=== PATIENT | male | born 1990 | race Hispanic/Latino ===

== ENCOUNTER 2017-01-19 15:46 | Emergency (ER) | payer OTHER ==
[~2017-01-19] VITALS: Ht 188 cm; Wt 86.4 kg
[2017-01-19 15:50] VITALS: BP 138/89; PULSE 74; RESP 16; O2SAT 100
--- NOTE | 2017-01-19 16:33 | ED.REPORT ---
HPI-Head Prob / Injury Date of Service January 19, 2017 ED Provider: Zain Bennett MD History of Present Illness: Turns out trauma was to neck. Patient is a 26 year old male who presents to the ED due to a blunt head trauma at 1245. Associated symptoms include headache, neck, upper back pain and dizziness after the incident that has since resolved. He denies losing consciousness, numbness or tingling, confusion, memory loss, nausea or vomiting. The patient reports that he was at work when a eleni broke and a 250 pound metal plate fell and hit him on the back of the head. He states was wearing a helmet during that time. Nursing Notes Stated Complaint: HEAD/NECK INJURY Chief Complaint: Multiple Trauma/Fall Nursing Notes Reviewed: Yes ([employer], [employer] not reconciled) Allergies: Coded Allergies: No Known Allergies (Unverified , 01/19/17) Scheduled PRN Hydrocodone-Acetaminophen 5-325 mg (Hydrocodone-Acetaminophen 5-325 mg) 1 Each Tablet 1-2 TABLET PO BID PRN PRN For Pain In [place] please General Time Seen by Provider: 16:39 Chief Complaint Blunt head trauma Hx Obtained From: Patient, Merchandising Specialist Arrived By: Walk-in Onset Occurred: 1 - 4 hours ago Symptom Duration: Since onset Caused by: Blunt trauma Location: : Neck: Occipital region L: Occipital region R Severity: Current: Moderate Associated with: Reports: Dizziness, Headache, Denies: Loss of consciousness, Nausea, Vomiting Recent Healthcare: No recent doctor visit, No recent hospitalization Similar Sx Previous: No Past Medical History Past Medical History none reported Past Surgical History none reported Smoking History Light Tobacco Smoker Social History Alcohol Use: "Social" Other Social History: Good social support, Local resident Ambulatory Status Independent Review of Systems GI: Denies: Nausea, Vomiting Musculoskeletal: Reports: Back pain, Neck pain Neurologic: Reports: Headache, Denies: Change LOC, Confusion, Numbness Complete sys rev & neg: except as marked. Respiratory: Denies: Non-productive cough, Shortness of breath Physical Exam Initial Vital Signs Vital Signs (First) Date Time Temp Pulse Resp B/P Pulse Ox O2 Delivery O2 Flow Rate FiO2 01/19/17 15:50 36.9 74 16 138/89 100 Room Air Initial VS: Reviewed, Vital signs normal General/Constitutional: Awake, Alert Head / Eyes: Atraumatic, Normocephalic, PERRL, EOMI no visible trauma to head or skull ENT: Atraumatic, Airway patent, Mucous membranes moist Neck: Atraumatic NECK: midline neck soreness Neurologic: Oriented X3, Speech NL, No motor deficits, No sensory deficits, Memory NL Respiratory / Chest: Atraumatic, No respiratory distress Skin: Atraumatic, Color NL, No rash, Warm, Dry Psychiatric: Affect NL, Mood NL Interpretation & Diagnostics CT C-Spine Interpretation IMPRESSION: No fracture Straightening of the normal cervical lordosis Dictated by: Ángel Fuller M.D. on 01/19/2017 at 17:31 Approved by: Ángel Fuller M.D. on 01/19/2017 at 17:33 Interpretation / Wet Read by: Interpret - Radiologist Re-Eval/Medical Decision Med Decision/Clinical Course This is a 26-year-old male presents with an injury at work. 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 He denies any neurologic symptoms and he has no additional complaints. On exam is no visible external signs of visible trauma. But he does complain of cervical neck pain is mild cervical tenderness. His neurologic exam is normal and is generally well-appearing. He was placed in a c-collar on arrival to the department. I am not funny indication that a CT brain is indicated, but is cervical CT was obtained given the neck pain. This was negative. The collar is removed received ibuprofen. A work note was written. L&I paperwork was completed. He is being discharged and ibuprofen as well as a prescription for a few when necessary hydrocodone. He is discharged in good condition. Source of Hx: Old records Re-Evaluation/Progress : Time of Eval: 18:08 Re-Evaluation/Progress Note: Discussed results and plan for discharge. Discussed discharge instructions with use of an cable television program director. The patient understands and agrees to the plan for discharge. All questions were addressed. Differential Diagnosis: Negative: Abrasion, Basilar skull fracture, Blunt head trauma, Epidural hematoma, Epistaxis, Facial bone fracture, Gun shot wound head , Intracranial hemorrhage, Penetrating head injury, Post-concussive syndrome, Skull fracture, Subdural hematoma Counseled Regarding: Diagnosis, Lab results, Need for follow-up, When/why to return to ED Discharge & Departure Primary Impression: Cervical strain, acute Encounter type: initial encounter Qualified Code: S16.1XXA - Strain of muscle, fascia and tendon at neck level, initial encounter Disposition: Home All VS Reviewed: Yes Condition: Stable Additional Instructions: 1. You had a CT scan of your neck today that was normal. 2. Expect to be increasingly sore over the next several days before starting to get better. 3. Activities as tolerated. 4. Take ibuprofen 800 mg 3 times a day as needed for pain or soreness. 5. If absolutely needed take hydrocodone/APAP 5/325 1-2 tabs up to twice a day for more severe pain. However, this medication contains narcotic and causes some dizziness and drowsiness. No driving for at least 4-6 hours after taking. Use only if needed for severe pain. 1. Le hicieron carlos tomagrafia computerizada de banuelos sangita hoy que salio' normal 2. Puede esperar que se le aumente el dolor por las proximas pocas neely anted de que se mejora. 3. Actividades primo se tolera. 4. [place] ibuprofen 800mg 3 veces al hesham primo se necesita para dolor o dolencia 5. Si absolutamente necesita para dolor mas abebe ranjan hydrocodone/APAP 5/325 carlos a dos tabletas hasta 2 veces al hesham. Sin embargo, kole medicamento contiene narcotico y causa algo de mareo y adormecimiento. No maneja por 4 a 6 horas por lo menos despues de tomarlo. Use solamente si se necesita para dolor abebe. Referrals: [facility] Attestation Portions of this note were transcribed by Rachel Arciniega. I, Dr. Bennett personally performed the history, physical exam and medical decision-making; I reviewed and confirmed the accuracy of the information in the transcribed note. Signed by: Betsy Andrews, 01/19/17 and 1805 copies to: [facility] Zain Bennett MD January 19, 2017 16:33 Celia Arciniega January 19, 2017 16:40
--- NOTE | 2017-01-19 17:35 | DRSVH ---
PROCEDURE: CT CERVICAL SPINE WITHOUT CONTRAST ([id number]) INDICATIONS: neck pain, trauma TECHNIQUE: Noncontrast 3 mm thick sections acquired from the skull base to the T4 level. Sagittal and coronal r eformats were then constructed. For radiation dose reduction, the following was used: automated exp osure control, adjustment of mA and/or kV according to patient size. COMPARISON: None. FINDINGS: Image quality: Excellent. Bones: No fractures or dislocations. Visualized superior ribs are intact. There is straightening o f the normal cervical lordosis. No definite disc space narrowing Soft tissues: Prevertebral soft tissues are normal in thickness. No paravertebral hematomas. No ap ical pneumothoraces. IMPRESSION: No fracture Straightening of the normal cervical lordosis Dictated by: Ángel Fuller M.D. on 01/19/2017 at 17:31 Approved by: Ángel Fuller M.D. on 01/19/2017 at 17:33
[2017-01-19] MEDS ORDERED: HYDR-4003 PO (17:58)
== END 2017-01-19 18:55 | disposition home or self-care (01) ==
LOC: SED 15:46
DX: S16.1XXA Strain of muscle, fascia and tendon at neck level, initial encounter (principal); W20.8XXA Other cause of strike by thrown, projected or falling object, initial encounter; Y93.89 Activity, other specified; Y92.69 Other specified industrial and construction area as the place of occurrence of the external cause; Y99.0 Civilian activity done for income or pay; F17.200 Nicotine dependence, unspecified, uncomplicated